=== PATIENT | female | born 1945 | race Caucasian/White ===

== ENCOUNTER 2021-07-29 07:25 | Inpatient (IN) | payer MEDICARE, BC ==
[2021-07-29 07:46] LABS: #Basophils 0.1 10x3/uL (0.0-0.2); #Eosinphils 0.2 10x3/uL (0.0-0.5); #Neutrophils 11.1 10x3/uL (1.5-8.4); %Basophils 0.8 % (0.0-2.0); %Eosinophils 1.2 % (0.0-6.0); %Lymphocytes 18.6 % (18.0-47.0); %Monocytes 6.2 % (0.0-10.0); %Neutrophils 72.4 % (40.0-75.0); Hemoglobin 12.3 g/dL (12.0-15.5); Mean Corpuscular HGB CONC 31.5 g/dL (32.0-36.0); Mean Corpuscular Hemoglobin 31.1 pg (27.0-33.0); Mean Corpuscular Volume 98.7 fl (81.6-98.3); Mean Platelet Volume 9.8 fl (7.4-10.4); Platelet Count 347 10x3/uL (150-450); RBC Distribution Width 13.9 % (11.5-14.5); Red Blood Cell (RBC) Count 3.96 10x6/uL (3.90-5.03); White Blood Cell (WBC) Count 15.3 10x3/uL (3.5-10.5)
[2021-07-29 07:48] LABS: Actual Bicarbonate (HCO3v) 21 mEq/L (22-28); Base Excess -5.2 mEq/L (-2.0 to +3.0); Calcium, Ionized (venous) 1.09 mmol/L (1.16-1.32); Chloride (VBG) 96 mmol/L (98-106); Hemoglobin (Hb) 13.2 g/dL (11.7-16.1); Potassium (VBG) 4.35 mmol/L (3.70-5.30); Puncture Site Other Site; RapidComm Collect By CBN; Sodium 131.3 mmol/L (133-146)
[2021-07-29 08:00] LABS: ALT (SGPT) 40 U/L (8-55); AST (SGOT) 45 U/L (5-34); Albumin 3.9 g/dL (3.4-4.8); Alkaline Phosphatase 102 U/L (40-110); Anion Gap 17 mmol/L (10-20); BUN (Urea Nitrogen) 18 mg/dL (9.8-20.1); Bilirubin, Total 0.7 mg/dL (0.2-1.2); Calc. Creatinine Clearance 0 mL/min (70-130); Calcium 8.3 mg/dL (7.8-10.44); Carbon Dioxide 22 mmol/L (23-31); Chloride 99 mmol/L (98-107); Globulin 2.9 g/dL (2.4-3.5); Glucose 369 mg/dL (83-110); Potassium 4.7 mmol/L (3.5-5.1); Protein, Total 6.8 g/dL (5.8-8.1); Sodium 133 mmol/L (136-145)
[2021-07-29 08:53] LABS: CKMB 3.4 ng/mL (0-6.6)
[2021-07-29 10:53] LABS: Lactic Acid 2.3 mmol/L (0.5-2.2)
[2021-07-29] MEDS ORDERED: Bisacodyl 5 MG TAB PO PRN (11:02)
[2021-07-29] MEDS ORDERED: Bisacodyl 10 MG SUPP PR PRN (11:02)
[2021-07-29] MEDS ORDERED: Ondansetron ODT 4 MG TAB PO PRN (11:02)
[2021-07-29] MEDS ORDERED: Ondansetron PF 4 MG/2 ML Vial IVP PRN (11:02)
[2021-07-29] MEDS ORDERED: Senokot S 8.6-50 MG TAB PO PRN (11:02)
[2021-07-29] MEDS ORDERED: Dextrose 5% in Water 1,000 ML IV PRN (11:13)
[2021-07-29] MEDS ORDERED: Dextrose 50% Abboject 50 ML SYRINGE SLOW IVP PRN (11:13)
[2021-07-29 12:25] LABS: Troponin I 2.167 ng/mL (< 0.028)
[2021-07-29 13:22] LABS: SARS-CoV-2 NAA Rapid Test Not Detected (NotDetected)
[2021-07-29] MEDS: methylPREDNISolone Sod Succ/PF 125 MG/2 ML VIAL IVP SCH ×2 (13:40→18:16)
[2021-07-29] MEDS: Albuterol Sulfate 2.5 mg/3 ml Neb NEB SCH ×3 (15:08→22:55)
[2021-07-29] MEDS: Acetaminophen 325 MG TAB PO PRN (16:23)
[2021-07-29] MEDS: HumaLOG 300 UNITS/3 ML VIAL SC PRN ×2 (16:29→21:38)
[2021-07-29 17:56] LABS: Troponin I 2.371 ng/mL (< 0.028)
[2021-07-29] MEDS ORDERED: Aspirin 81 mg Enteric Coated Tablet PO SCH (20:00)
[2021-07-29] MEDS: Atorvastatin Calcium 40 MG TAB PO SCH (20:56)
[2021-07-29] MEDS: Famotidine 20 MG TAB PO SCH (20:57)
[2021-07-29] MEDS: Enoxaparin Sodium 80 MG/0.8 ML SYRINGE SC SCH (20:57)
[2021-07-29] MEDS ORDERED: Furosemide 40 MG TAB PO PRN (22:47)
[2021-07-29] MEDS ORDERED: Carvedilol 3.125 MG TAB PO SCH (23:15)
[2021-07-29] MEDS: Azithromycin 500 MG in Sodium Chloride 0.9% 250 ML 250 ML IVPB SCH (23:25)
[2021-07-30] MEDS: methylPREDNISolone Sod Succ/PF 125 MG/2 ML VIAL IVP SCH ×3 (01:33→09:47)
[2021-07-30] MEDS: cefTRIAXone\\ROCEPHIN 2 GM in Sodium Chloride 0.9% 100 ML IVPB SCH ×2 (01:34→23:45)
[2021-07-30] MEDS: Albuterol Sulfate 2.5 mg/3 ml Neb NEB SCH ×6 (02:58→22:47)
[2021-07-30] MEDS ORDERED: Lorazepam 0.5 MG TAB PO SCH (03:45)
[2021-07-30 04:04] LABS: #Monocytes 0.5 10x3/uL (0.0-1.1); #Neutrophils 12.1 10x3/uL (1.5-8.4); %Basophils 0.1 % (0.0-2.0); %Monocytes 3.6 % (0.0-10.0); %Neutrophils 88.9 % (40.0-75.0); Hemoglobin 12.4 g/dL (12.0-15.5); Mean Corpuscular HGB CONC 31.6 g/dL (32.0-36.0); Mean Corpuscular Hemoglobin 31.2 pg (27.0-33.0); Mean Corpuscular Volume 98.7 fl (81.6-98.3); Mean Platelet Volume 10.3 fl (7.4-10.4); Platelet Count 263 10x3/uL (150-450); RBC Distribution Width 13.9 % (11.5-14.5); Red Blood Cell (RBC) Count 3.97 10x6/uL (3.90-5.03); White Blood Cell (WBC) Count 13.6 10x3/uL (3.5-10.5)
[2021-07-30 04:28] LABS: ALT (SGPT) 99 U/L (8-55); AST (SGOT) 106 U/L (5-34); Albumin 3.9 g/dL (3.4-4.8); Alkaline Phosphatase 115 U/L (40-110); Anion Gap 16 mmol/L (10-20); BUN (Urea Nitrogen) 21 mg/dL (9.8-20.1); Bilirubin, Total 0.6 mg/dL (0.2-1.2); CRP (Inflammatory) 4.61 mg/dL (= or < 0.5); Calc. Creatinine Clearance 76 mL/min (70-130); Calcium 8.5 mg/dL (7.8-10.44); Carbon Dioxide 21 mmol/L (23-31); Cardiac Risk 2.4 (Less than 4.5); Chloride 98 mmol/L (98-107); Cholesterol 156 mg/dl (< 200 Desired); Glucose 220 mg/dL (83-110); HDL Cholesterol 64 mg/dL (>60 Neg Risk); LDL Cholesterol, Calculated 84 mg/dL; Magnesium 2.6 mg/dL (1.6-2.6); Phosphorus 4.1 mg/dL (2.3-4.7); Potassium 5.4 mmol/L (3.5-5.1); Protein, Total 6.9 g/dL (5.8-8.1); Sodium 130 mmol/L (136-145); Triglycerides 39 mg/dL (Less than 150)
[2021-07-30 04:43] LABS: Troponin I 1.328 ng/mL (< 0.028)
[2021-07-30] MEDS: HumaLOG 300 UNITS/3 ML VIAL SC PRN (05:23)
[2021-07-30] MEDS ORDERED: Furosemide 40 MG/4 ML VIAL SLOW IVP SCH ×2 (08:30→15:15)
[2021-07-30] MEDS ORDERED: Enoxaparin Sodium 40 MG/0.4 ML SYRINGE SC SCH (09:00)
[2021-07-30] MEDS: Digoxin 0.125 MG TAB PO SCH (09:31)
[2021-07-30] MEDS: Enoxaparin Sodium 80 MG/0.8 ML SYRINGE SC SCH ×2 (09:31→22:11)
[2021-07-30] MEDS: Carvedilol 3.125 MG TAB PO SCH ×2 (09:32→16:14)
[2021-07-30] MEDS: Aspirin 81 mg Enteric Coated Tablet PO SCH (09:32)
[2021-07-30] MEDS: Famotidine 20 MG TAB PO SCH ×2 (09:32→22:10)
[2021-07-30 09:43] LABS: Anion Gap 14 mmol/L (10-20); BUN (Urea Nitrogen) 21 mg/dL (9.8-20.1); Calc. Creatinine Clearance 79 mL/min (70-130); Calcium 9.1 mg/dL (7.8-10.44); Carbon Dioxide 24 mmol/L (23-31); Chloride 101 mmol/L (98-107); Glucose 79 mg/dL (83-110); Potassium 4.8 mmol/L (3.5-5.1); Sodium 134 mmol/L (136-145)
[2021-07-30 12:41] LABS: Hemoglobin A1c 5.9 % (4.0-6.0)
[2021-07-30] MEDS: Acetaminophen 325 MG TAB PO PRN (19:14)
[2021-07-30] MEDS ORDERED: Loratadine 10 MG TAB PO SCH (21:00)
[2021-07-30] MEDS: Benzonatate 100 MG CAP PO PRN (22:10)
[2021-07-30] MEDS: Atorvastatin Calcium 40 MG TAB PO SCH (22:10)
[2021-07-30] MEDS: CETIRIZINE PO SCH (22:12)
[2021-07-30] MEDS: Azithromycin 500 MG in Sodium Chloride 0.9% 250 ML 250 ML IVPB SCH (23:38)
[2021-07-31] MEDS ORDERED: Albuterol Sulfate 2.5 mg/3 ml Neb NEB SCH (01:30)
[2021-07-31] MEDS ORDERED: Lorazepam 2 MG/ML VIAL SLOW IVP SCH (01:30)
[2021-07-31] MEDS: Albuterol Sulfate 2.5 mg/3 ml Neb NEB SCH ×6 (04:34→22:50)
[2021-07-31 05:52] LABS: ALT (SGPT) 137 U/L (8-55); AST (SGOT) 130 U/L (5-34); Albumin 3.8 g/dL (3.4-4.8); Alkaline Phosphatase 108 U/L (40-110); Anion Gap 15 mmol/L (10-20); BUN (Urea Nitrogen) 33 mg/dL (9.8-20.1); Bilirubin, Total 0.5 mg/dL (0.2-1.2); Calc. Creatinine Clearance 64 mL/min (70-130); Calcium 8.8 mg/dL (7.8-10.44); Carbon Dioxide 26 mmol/L (23-31); Chloride 97 mmol/L (98-107); Globulin 3.1 g/dL (2.4-3.5); Glucose 147 mg/dL (83-110); Magnesium 2.6 mg/dL (1.6-2.6); Phosphorus 4.7 mg/dL (2.3-4.7); Potassium 4.4 mmol/L (3.5-5.1); Protein, Total 6.9 g/dL (5.8-8.1); Sodium 134 mmol/L (136-145)
[2021-07-31 05:53] LABS: #Monocytes 1.5 10x3/uL (0.0-1.1); #Neutrophils 14.5 10x3/uL (1.5-8.4); %Basophils 0.2 % (0.0-2.0); %Lymphocytes 4.9 % (18.0-47.0); %Monocytes 8.7 % (0.0-10.0); %Neutrophils 85.6 % (40.0-75.0); Hemoglobin 12.4 g/dL (12.0-15.5); Mean Corpuscular HGB CONC 32.2 g/dL (32.0-36.0); Mean Corpuscular Hemoglobin 31.5 pg (27.0-33.0); Mean Corpuscular Volume 97.7 fl (81.6-98.3); Mean Platelet Volume 10.7 fl (7.4-10.4); Platelet Count 248 10x3/uL (150-450); RBC Distribution Width 13.9 % (11.5-14.5); Red Blood Cell (RBC) Count 3.94 10x6/uL (3.90-5.03); White Blood Cell (WBC) Count 16.9 10x3/uL (3.5-10.5)
[2021-07-31] MEDS: Furosemide 40 MG/4 ML VIAL SLOW IVP SCH ×2 (06:08→13:30)
[2021-07-31] MEDS: methylPREDNISolone Sod Succ/PF 125 MG/2 ML VIAL IVP SCH ×3 (09:08→23:37)
[2021-07-31] MEDS: Enoxaparin Sodium 80 MG/0.8 ML SYRINGE SC SCH ×2 (09:09→21:59)
[2021-07-31] MEDS: Carvedilol 6.25 MG TAB PO SCH ×2 (09:09→16:45)
[2021-07-31] MEDS: Aspirin 81 mg Enteric Coated Tablet PO SCH (09:10)
[2021-07-31] MEDS: Digoxin 0.125 MG TAB PO SCH (09:10)
[2021-07-31] MEDS: Famotidine 20 MG TAB PO SCH ×2 (09:10→22:01)
[2021-07-31] MEDS ORDERED: methylPREDNISolone Sod Succ/PF 125 MG/2 ML VIAL IVP SCH (13:00)
[2021-07-31] MEDS ORDERED: Albuterol Sulfate 2.5 mg/3 ml Neb ONE (13:26)
[2021-07-31] MEDS ORDERED: Magnesium 2 GM/50 ML 2 GM in Premix Bag 1 BAG IVPB SCH (13:30)
[2021-07-31 15:26] LABS: Lactic Acid 0.9 mmol/L (0.5-2.2); PTT 30.7 sec (22.0-33.0); Prothrombin Time 11.1 sec (9.5-12.1)
[2021-07-31 15:34] LABS: #Monocytes 0.3 10x3/uL (0.0-1.1); #Neutrophils 12.7 10x3/uL (1.5-8.4); %Basophils 0.1 % (0.0-2.0); %Lymphocytes 4.3 % (18.0-47.0); %Monocytes 2.4 % (0.0-10.0); %Neutrophils 92.8 % (40.0-75.0); Hemoglobin 12.6 g/dL (12.0-15.5); Mean Corpuscular HGB CONC 32.5 g/dL (32.0-36.0); Mean Corpuscular Hemoglobin 31.3 pg (27.0-33.0); Mean Corpuscular Volume 96.5 fl (81.6-98.3); Mean Platelet Volume 10.4 fl (7.4-10.4); Platelet Count 260 10x3/uL (150-450); RBC Distribution Width 13.8 % (11.5-14.5); Red Blood Cell (RBC) Count 4.02 10x6/uL (3.90-5.03); White Blood Cell (WBC) Count 13.7 10x3/uL (3.5-10.5)
[2021-07-31 15:36] LABS: Actual Bicarbonate (HCO3v) 37 mEq/L (22-28); Base Excess 11.7 mEq/L (-2.0 to +3.0); Calcium, Ionized (venous) 0.99 mmol/L (1.16-1.32); Chloride (VBG) 92 mmol/L (98-106); Hemoglobin (Hb) 13.5 g/dL (11.7-16.1); Potassium (VBG) 5.66 mmol/L (3.70-5.30); Puncture Site Other Site; Sodium 133.4 mmol/L (133-146); pH (venous) 7.49 (7.32-7.43)
[2021-07-31 15:55] LABS: ALT (SGPT) 145 U/L (8-55); AST (SGOT) 129 U/L (5-34); Albumin 3.9 g/dL (3.4-4.8); Alkaline Phosphatase 110 U/L (40-110); Anion Gap 16 mmol/L (10-20); BUN (Urea Nitrogen) 28 mg/dL (9.8-20.1); Bilirubin, Total 0.5 mg/dL (0.2-1.2); Calc. Creatinine Clearance 65 mL/min (70-130); Calcium 8.8 mg/dL (7.8-10.44); Carbon Dioxide 31 mmol/L (23-31); Chloride 93 mmol/L (98-107); Globulin 3.1 g/dL (2.4-3.5); Glucose 164 mg/dL (83-110); Magnesium 2.6 mg/dL (1.6-2.6); Phosphorus 3.5 mg/dL (2.3-4.7); Potassium 4.5 mmol/L (3.5-5.1); Sodium 135 mmol/L (136-145)
[2021-07-31] MEDS: CETIRIZINE PO SCH (21:59)
[2021-07-31] MEDS: Acetaminophen 325 MG TAB PO PRN (22:00)
[2021-07-31] MEDS: Benzonatate 100 MG CAP PO PRN (22:00)
[2021-07-31] MEDS: Atorvastatin Calcium 40 MG TAB PO SCH (22:00)
[2021-07-31] MEDS: Azithromycin 500 MG in Sodium Chloride 0.9% 250 ML 250 ML IVPB SCH (23:37)
[2021-07-31] MEDS: cefTRIAXone\\ROCEPHIN 2 GM in Sodium Chloride 0.9% 100 ML IVPB SCH (23:38)
[2021-07-31] MEDS ORDERED: HumaLOG 300 UNITS/3 ML VIAL SC SCH (23:45)
[2021-08-01] MEDS: Albuterol Sulfate 2.5 mg/3 ml Neb NEB SCH ×6 (03:20→22:50)
[2021-08-01] MEDS: Furosemide 40 MG/4 ML VIAL SLOW IVP SCH ×2 (06:09→15:24)
[2021-08-01] MEDS: methylPREDNISolone Sod Succ/PF 125 MG/2 ML VIAL IVP SCH ×3 (06:42→19:06)
[2021-08-01 07:18] LABS: #Monocytes 0.3 10x3/uL (0.0-1.1); #Neutrophils 7.7 10x3/uL (1.5-8.4); %Basophils 0.1 % (0.0-2.0); %Lymphocytes 9.8 % (18.0-47.0); %Monocytes 3.8 % (0.0-10.0); %Neutrophils 85.9 % (40.0-75.0); Mean Corpuscular Hemoglobin 31.3 pg (27.0-33.0); Mean Corpuscular Volume 97.7 fl (81.6-98.3); Mean Platelet Volume 10.5 fl (7.4-10.4); Platelet Count 240 10x3/uL (150-450); RBC Distribution Width 13.4 % (11.5-14.5); Red Blood Cell (RBC) Count 3.84 10x6/uL (3.90-5.03)
[2021-08-01 07:41] LABS: ALT (SGPT) 129 U/L (8-55); AST (SGOT) 91 U/L (5-34); Albumin 3.8 g/dL (3.4-4.8); Alkaline Phosphatase 99 U/L (40-110); Anion Gap 15 mmol/L (10-20); BUN (Urea Nitrogen) 29 mg/dL (9.8-20.1); Bilirubin, Total 0.5 mg/dL (0.2-1.2); Calc. Creatinine Clearance 71 mL/min (70-130); Carbon Dioxide 35 mmol/L (23-31); Chloride 92 mmol/L (98-107); Globulin 2.9 g/dL (2.4-3.5); Glucose 152 mg/dL (83-110); Magnesium 2.9 mg/dL (1.6-2.6); Phosphorus 3.3 mg/dL (2.3-4.7); Potassium 4.5 mmol/L (3.5-5.1); Protein, Total 6.7 g/dL (5.8-8.1); Sodium 137 mmol/L (136-145)
[2021-08-01] MEDS: Carvedilol 6.25 MG TAB PO SCH ×2 (11:37→19:25)
[2021-08-01] MEDS: Aspirin 81 mg Enteric Coated Tablet PO SCH (11:37)
[2021-08-01] MEDS: Famotidine 20 MG TAB PO SCH ×2 (11:37→22:27)
[2021-08-01] MEDS: Enoxaparin Sodium 80 MG/0.8 ML SYRINGE SC SCH (11:37)
[2021-08-01] MEDS: Digoxin 0.125 MG TAB PO SCH (11:37)
[2021-08-01] MEDS: Mometasone/Formoterol 200/5 60 PUFF INH SCH (19:30)
[2021-08-01] MEDS: Atorvastatin Calcium 40 MG TAB PO SCH (22:27)
[2021-08-01] MEDS: CETIRIZINE PO SCH (22:28)
[2021-08-01] MEDS: Azithromycin 500 MG in Sodium Chloride 0.9% 250 ML 250 ML IVPB SCH (22:28)
[2021-08-01] MEDS: Benzonatate 100 MG CAP PO PRN (22:29)
[2021-08-02] MEDS: Acetaminophen 325 MG TAB PO PRN (02:00)
[2021-08-02] MEDS: Albuterol Sulfate 2.5 mg/3 ml Neb NEB SCH ×6 (02:35→23:10)
[2021-08-02] MEDS: cefTRIAXone\\ROCEPHIN 2 GM in Sodium Chloride 0.9% 100 ML IVPB SCH (03:02)
[2021-08-02] MEDS: methylPREDNISolone Sod Succ/PF 125 MG/2 ML VIAL IVP SCH ×2 (03:02→06:34)
[2021-08-02] MEDS ORDERED: cefTRIAXone\\ROCEPHIN 1 GM VIAL IM SCH (04:00)
[2021-08-02] MEDS ORDERED: predniSONE 20 MG TAB PO SCH (04:00)
[2021-08-02] MEDS: Benzonatate 100 MG CAP PO PRN ×2 (04:22→21:00)
[2021-08-02 04:44] LABS: ALT (SGPT) 108 U/L (8-55); AST (SGOT) 68 U/L (5-34); Albumin 3.6 g/dL (3.4-4.8); Alkaline Phosphatase 95 U/L (40-110); Anion Gap 15 mmol/L (10-20); BUN (Urea Nitrogen) 36 mg/dL (9.8-20.1); Bilirubin, Total 0.5 mg/dL (0.2-1.2); Calc. Creatinine Clearance 61 mL/min (70-130); Calcium 8.6 mg/dL (7.8-10.44); Carbon Dioxide 33 mmol/L (23-31); Chloride 90 mmol/L (98-107); Glucose 168 mg/dL (83-110); Magnesium 2.7 mg/dL (1.6-2.6); Phosphorus 2.8 mg/dL (2.3-4.7); Potassium 4.3 mmol/L (3.5-5.1); Protein, Total 6.6 g/dL (5.8-8.1); Sodium 134 mmol/L (136-145)
[2021-08-02] MEDS ORDERED: Furosemide 20 MG TAB PO SCH (06:00)
[2021-08-02] MEDS: Furosemide 40 MG/4 ML VIAL SLOW IVP SCH (06:34)
[2021-08-02] MEDS: Mometasone/Formoterol 200/5 60 PUFF INH SCH ×2 (07:50→19:55)
[2021-08-02] MEDS: Famotidine 20 MG TAB PO SCH ×2 (10:04→21:00)
[2021-08-02] MEDS: Carvedilol 6.25 MG TAB PO SCH ×2 (10:04→18:20)
[2021-08-02] MEDS: Aspirin 81 mg Enteric Coated Tablet PO SCH (10:04)
[2021-08-02] MEDS: Digoxin 0.125 MG TAB PO SCH (10:04)
[2021-08-02] MEDS: Enoxaparin Sodium 40 MG/0.4 ML SYRINGE SC SCH (10:04)
[2021-08-02] MEDS: Torsemide 20 MG TAB PO SCH (15:02)
[2021-08-02] MEDS: Atorvastatin Calcium 40 MG TAB PO SCH (21:00)
[2021-08-02] MEDS: Cefdinir 300 MG CAP PO SCH (21:00)
[2021-08-02] MEDS: CETIRIZINE PO SCH (21:01)
[2021-08-03] MEDS: Albuterol Sulfate 2.5 mg/3 ml Neb NEB SCH ×5 (04:49→18:55)
[2021-08-03] MEDS: Mometasone/Formoterol 200/5 60 PUFF INH SCH (07:45)
[2021-08-03] MEDS: Carvedilol 6.25 MG TAB PO SCH ×2 (08:13→16:53)
[2021-08-03] MEDS: Torsemide 20 MG TAB PO SCH ×2 (08:13→14:39)
[2021-08-03] MEDS: predniSONE 20 MG TAB PO SCH (08:13)
[2021-08-03] MEDS: Aspirin 81 mg Enteric Coated Tablet PO SCH (08:13)
[2021-08-03] MEDS: Digoxin 0.125 MG TAB PO SCH (08:13)
[2021-08-03] MEDS: Cefdinir 300 MG CAP PO SCH (08:13)
[2021-08-03] MEDS: Famotidine 20 MG TAB PO SCH ×2 (08:13→20:11)
[2021-08-03] MEDS: Enoxaparin Sodium 40 MG/0.4 ML SYRINGE SC SCH (08:14)
[2021-08-03] MEDS ORDERED: Azithromycin 250 MG TAB PO SCH (09:00)
[2021-08-03] MEDS: Benzonatate 100 MG CAP PO PRN ×2 (11:27→20:16)
[2021-08-03] MEDS: Acetaminophen 325 MG TAB PO PRN (11:27)
[2021-08-03] MEDS ORDERED: Albuterol Sulfate 2.5 mg/3 ml Neb NEB PRN (17:00)
[2021-08-03] MEDS: Atorvastatin Calcium 40 MG TAB PO SCH (20:11)
[2021-08-03] MEDS: CETIRIZINE PO SCH (20:11)
[2021-08-03] MEDS ORDERED: Montelukast Sodium 10 mg Tablet PO SCH (21:00)
[2021-08-04] MEDS: Albuterol Sulfate 2.5 mg/3 ml Neb NEB SCH ×4 (00:05→10:40)
[2021-08-04] MEDS: Mometasone/Formoterol 200/5 60 PUFF INH SCH ×2 (00:21→10:40)
[2021-08-04 04:46] VITALS: BMI 26.4
[2021-08-04] MEDS: Torsemide 20 MG TAB PO SCH ×2 (08:26→15:46)
[2021-08-04] MEDS: predniSONE 20 MG TAB PO SCH (08:26)
[2021-08-04] MEDS: Carvedilol 6.25 MG TAB PO SCH (08:26)
[2021-08-04] MEDS: Aspirin 81 mg Enteric Coated Tablet PO SCH (08:26)
[2021-08-04] MEDS: Famotidine 20 MG TAB PO SCH (08:27)
[2021-08-04] MEDS: Enoxaparin Sodium 40 MG/0.4 ML SYRINGE SC SCH (08:27)
[2021-08-04] MEDS: Digoxin 0.125 MG TAB PO SCH (08:27)
[2021-08-04 08:36] LABS: #Eosinphils 0.2 10x3/uL (0.0-0.5); #Monocytes 0.9 10x3/uL (0.0-1.1); %Basophils 0.1 % (0.0-2.0); %Eosinophils 2.2 % (0.0-6.0); %Lymphocytes 32.3 % (18.0-47.0); %Monocytes 9.6 % (0.0-10.0); Hemoglobin 10.7 g/dL (12.0-15.5); Mean Corpuscular HGB CONC 31.7 g/dL (32.0-36.0); Mean Corpuscular Hemoglobin 31.1 pg (27.0-33.0); Mean Corpuscular Volume 98.3 fl (81.6-98.3); Mean Platelet Volume 10.2 fl (7.4-10.4); Platelet Count 243 10x3/uL (150-450); RBC Distribution Width 13.1 % (11.5-14.5); Red Blood Cell (RBC) Count 3.44 10x6/uL (3.90-5.03); White Blood Cell (WBC) Count 9.2 10x3/uL (3.5-10.5)
[2021-08-04 08:54] LABS: BUN (Urea Nitrogen) 28 mg/dL (9.8-20.1); Calc. Creatinine Clearance 76 mL/min (70-130); Calcium 8.5 mg/dL (7.8-10.44); Glucose 104 mg/dL (83-110)
[2021-08-04 09:07] LABS: Anion Gap 15 mmol/L (10-20); Carbon Dioxide 38 mmol/L (23-31); Chloride 90 mmol/L (98-107); Potassium 3.8 mmol/L (3.5-5.1); Sodium 139 mmol/L (136-145)
[2021-08-04 12:42] VITALS: TEMP 97.5
[2021-08-04 16:02] VITALS: BP 136/63
== END 2021-08-04 16:50 | disposition home or self-care (01) | DRG 871 ==
LOC: SUATTDRO 07:25 → CSHERS 07:25 → CSHICU 13:04 → CSHTELE 07-30 21:07
PROVIDERS: ADMIT Family Medicine; ATTEND Family Medicine
DX: A41.9 Sepsis, unspecified organism (principal); J96.01 Acute respiratory failure with hypoxia; I50.23 Acute on chronic systolic (congestive) heart failure; I21.A1 Myocardial infarction type 2; J45.51 Severe persistent asthma with (acute) exacerbation; I16.1 Hypertensive emergency; I51.81 Takotsubo syndrome; Z20.822 Contact with and (suspected) exposure to COVID-19; I11.0 Hypertensive heart disease with heart failure; I48.91 Unspecified atrial fibrillation; K76.9 Liver disease, unspecified; R73.9 Hyperglycemia, unspecified; Z88.5 Allergy status to narcotic agent; Z88.0 Allergy status to penicillin; Z88.8 Allergy status to other drugs, medicaments and biological substances; Z79.51 Long term (current) use of inhaled steroids; Z90.710 Acquired absence of both cervix and uterus; Z90.49 Acquired absence of other specified parts of digestive tract; Z90.89 Acquired absence of other organs; Z95.0 Presence of cardiac pacemaker
CPT/HCPCS: 0240U; 36415; 36416; 71045; 71275; 76705; 80048; 80053; 80061; 82553; 82805; 83036; 83605; 83735; 83880; 84100; 84145; 84443; 84484; 85025; 85610; 85730; 86140; 86850; 86900; 86901; 87040; 87070; 87081; 87205; 93005; 93010; 93306; 94640; 94660; 94664; 94760; J0456; J0696; J1650; J1815; J1940; J2060; J2405; J2930; J3475; J3490; J7050; J7512; J7611

== ENCOUNTER 2025-04-02 13:37 | Inpatient (IN) | payer MEDICARE, BC ==
[2025-04-02 14:34] LABS: #Basophils 0.06 10x3/uL (0.0-0.2); #Eosinophils 0.53 10x3/uL (0.0-0.5); #Monocytes 0.67 10x3/uL (0.0-1.1); #Neutrophils 4.51 10x3/uL (1.5-8.4); %Basophils 0.8 % (0.0-2.0); %Eosinophils 6.8 % (0.0-6.0); %Lymphocytes 25.8 % (18.0-47.0); %Monocytes 8.6 % (0.0-10.0); %Neutrophils 57.5 % (40.0-75.0); Hematocrit 36.4 % (34.9-44.5); Hemoglobin 11.7 g/dL (12.0-15.5); Mean Corpuscular Hemoglobin 30.9 pg (27.0-33.0); Mean Corpuscular Volume 96.0 fL (81.6-98.3); Platelet Count 314 10x3/uL (150-450); Red Blood Cell (RBC) Count 3.79 10x6/uL (3.90-5.03); White Blood Cell (WBC) Count 7.83 10x3/uL (3.5-10.5)
[2025-04-02 14:50] LABS: ALT (SGPT) 20 U/L (Less than 34); AST (SGOT) 29 U/L (11-34); Albumin 4.3 g/dL (3.1-4.5); Alkaline Phosphatase 86 U/L (40-110); Anion Gap 12 mmol/L (10-20); BUN (Urea Nitrogen) 17 mg/dL (9.8-20.1); Bilirubin, Total 0.3 mg/dL (0.3-1.2); Calc. Creatinine Clearance 0 mL/min (70-130); Calcium 9.7 mg/dL (7.8-10.44); Carbon Dioxide 28 mmol/L (23-31); Chloride 103 mmol/L (98-107); Globulin 3.6 g/dL (2.4-3.5); Glucose 115 mg/dL (83-110); Potassium 4.2 mmol/L (3.5-5.1); Sodium 139 mmol/L (136-145)
[2025-04-02] MEDS ORDERED: LevoFLOXacin 750 mg/D5W 150 ml Premix Bag ONE (14:51)
[2025-04-02 16:40] LABS: Glucose, Urine (Dipstick) Normal (Negative); Leukocyte Negative (Negative); Protein, Urine (Dipstick) Negative (Neg-Trace); Specific Gravity, Urine 1.015 (1.005-1.030)
[2025-04-02 16:58] LABS: Bacteria/HPF None Seen HPF (None Seen); CAUTI Indications for Culture Fever or rigors; RBC/HPF None Seen HPF (0-3); WBC/HPF None Seen HPF (0-3)
[2025-04-02] MEDS ORDERED: Senokot S 8.6-50 MG TAB PO PRN (16:58)
[2025-04-02] MEDS ORDERED: Melatonin 3 MG TAB PO PRN (16:58)
[2025-04-02 16:59] LABS: Urine Culture Reflex No No
[2025-04-02] MEDS ORDERED: diphenhydrAMINE 25 MG CAP PO PRN (17:02)
[2025-04-02] MEDS: VANCOMYCIN 1.75 GM/350 ML BAG 1.75 GM in Premix 1 BAG IVPB SCH (17:21)
[2025-04-02 17:22] VITALS: BMI 25.3
[2025-04-02] MEDS: Famotidine 20 MG TAB PO SCH (20:30)
[2025-04-03] MEDS: Vancomycin HCl 750 MG in Sodium Chloride 0.9% 250 ML 250 ML IVPB SCH (00:04)
[2025-04-03 04:10] LABS: Anion Gap 12 mmol/L (10-20); BUN (Urea Nitrogen) 15 mg/dL (9.8-20.1); Calc. Creatinine Clearance 78 mL/min (70-130); Calcium 8.6 mg/dL (7.8-10.44); Carbon Dioxide 24 mmol/L (23-31); Chloride 107 mmol/L (98-107); Glucose 108 mg/dL (83-110); Potassium 3.9 mmol/L (3.5-5.1); Sodium 139 mmol/L (136-145)
[2025-04-03 04:11] LABS: Vancomycin, Random 29.1 ug/mL (See Comment)
[2025-04-03] MEDS: PNEUMOC 20-VAL CONJ-DIP CRM/PF 0.5 ML SYRINGE IM ONE (08:56)
[2025-04-03] MEDS: Acetaminophen 325 MG TAB PO PRN (08:57)
[2025-04-03] MEDS: Enoxaparin 40 MG (0.4 mL) SYRINGE SC SCH (08:59)
[2025-04-03] MEDS: Torsemide 20 MG TAB PO SCH (14:48)
[2025-04-03] MEDS: Digoxin 0.125 MG TAB PO SCH (14:48)
[2025-04-03] MEDS: Aspirin 81 mg Enteric Coated Tablet PO SCH (14:49)
[2025-04-03] MEDS: Carvedilol 6.25 MG TAB PO SCH (14:49)
[2025-04-03] MEDS: LevoFLOXacin 750 mg/D5W 750 MG in Premix 1 BAG IVPB SCH (15:35)
[2025-04-03] MEDS: Vancomycin 1 GM in Sodium Chloride 0.9% 250 ML 250 ML IVPB SCH (19:37)
[2025-04-04] MEDS: diphenhydrAMINE 50 MG/ML VIAL IVP PRN (11:14)
[2025-04-05 12:05] VITALS: BP 141/72; TEMP 98.3
== END 2025-04-05 14:37 | disposition home or self-care (01) | DRG 603 ==
LOC: CSHERS 13:37 → CSHTELE 16:04 → OBSVTOIN 04-03 12:24
PROVIDERS: ADMIT Internal Medicine; ATTEND Internal Medicine
DX: L03.113 Cellulitis of right upper limb (principal); L03.115 Cellulitis of right lower limb; I48.19 Other persistent atrial fibrillation; I48.91 Unspecified atrial fibrillation; F10.90 Alcohol use, unspecified, uncomplicated; E78.5 Hyperlipidemia, unspecified; I50.9 Heart failure, unspecified; Z90.710 Acquired absence of both cervix and uterus; Z98.890 Other specified postprocedural states; Z95.0 Presence of cardiac pacemaker; Z95.818 Presence of other cardiac implants and grafts
CPT/HCPCS: 36415; 71045; 80048; 80053; 80202; 81001; 83605; 84145; 85025; 86140; 87040; 87081; 87086; 93005; 94640; 97139; J1200; J1650; J1956; J3373; J3375; J7050; J7620

== ENCOUNTER 2025-04-09 13:55 | Outpatient (CLI) | payer MEDICARE, BC | END 2025-04-09 13:56 | disposition home or self-care (01) | LOC: CSHWCC 13:55 | PROVIDERS: ATTEND Nurse Practitioner Family | DX: I87.331 Chronic venous hypertension (idiopathic) with ulcer and inflammation of right lower extremity (principal); L97.211 Non-pressure chronic ulcer of right calf limited to breakdown of skin; I50.22 Chronic systolic (congestive) heart failure | CPT/HCPCS: 11042; G0463; 99213 ==

== ENCOUNTER 2025-04-16 12:46 | Outpatient (CLI) | payer MEDICARE, BC | END 2025-04-16 12:47 | disposition home or self-care (01) | LOC: CSHWCC 12:46 | PROVIDERS: ATTEND Nurse Practitioner Family | DX: I87.331 Chronic venous hypertension (idiopathic) with ulcer and inflammation of right lower extremity (principal); L97.211 Non-pressure chronic ulcer of right calf limited to breakdown of skin; I50.22 Chronic systolic (congestive) heart failure | CPT/HCPCS: 11042 ==

== ENCOUNTER 2025-04-30 13:39 | Outpatient (CLI) | payer MEDICARE, BC | END 2025-04-30 13:40 | disposition home or self-care (01) | LOC: CSHWCC 13:39 | PROVIDERS: ATTEND Nurse Practitioner Family | DX: I87.331 Chronic venous hypertension (idiopathic) with ulcer and inflammation of right lower extremity (principal); L97.211 Non-pressure chronic ulcer of right calf limited to breakdown of skin; I50.22 Chronic systolic (congestive) heart failure | CPT/HCPCS: 11042 ==

== ENCOUNTER 2025-05-11 13:02 | Outpatient (CLI) | payer MEDICARE, BC | END 2025-05-11 13:03 | disposition home or self-care (01) | LOC: CSHWCC 13:02 | PROVIDERS: ATTEND Nurse Practitioner Family | DX: I87.331 Chronic venous hypertension (idiopathic) with ulcer and inflammation of right lower extremity (principal); L97.211 Non-pressure chronic ulcer of right calf limited to breakdown of skin; I50.22 Chronic systolic (congestive) heart failure | CPT/HCPCS: 29581 ==

== ENCOUNTER 2025-05-14 13:39 | Outpatient (CLI) | payer MEDICARE, BC | END 2025-05-14 13:40 | disposition home or self-care (01) | LOC: CSHWCC 13:39 | PROVIDERS: ATTEND Nurse Practitioner Family | DX: I87.331 Chronic venous hypertension (idiopathic) with ulcer and inflammation of right lower extremity (principal); L97.211 Non-pressure chronic ulcer of right calf limited to breakdown of skin; I50.22 Chronic systolic (congestive) heart failure | CPT/HCPCS: 11042 ==

== ENCOUNTER 2025-05-17 14:16 | Outpatient (CLI) | payer MEDICARE, BC | END 2025-05-17 14:17 | disposition home or self-care (01) | LOC: CSHWCC 14:16 | PROVIDERS: ATTEND Nurse Practitioner Family | DX: I87.331 Chronic venous hypertension (idiopathic) with ulcer and inflammation of right lower extremity (principal); L97.211 Non-pressure chronic ulcer of right calf limited to breakdown of skin; I50.22 Chronic systolic (congestive) heart failure | CPT/HCPCS: 29581 ==

== ENCOUNTER 2025-05-21 15:19 | Outpatient (CLI) | payer MEDICARE, BC | END 2025-05-21 15:20 | disposition home or self-care (01) | LOC: CSHWCC 15:19 | PROVIDERS: ATTEND Nurse Practitioner Family | DX: I87.331 Chronic venous hypertension (idiopathic) with ulcer and inflammation of right lower extremity (principal); L97.211 Non-pressure chronic ulcer of right calf limited to breakdown of skin; I50.22 Chronic systolic (congestive) heart failure | CPT/HCPCS: 11042 ==

== ENCOUNTER 2025-05-24 14:03 | Outpatient (CLI) | payer MEDICARE, BC | END 2025-05-24 14:04 | disposition home or self-care (01) | LOC: CSHWCC 14:03 | PROVIDERS: ATTEND Nurse Practitioner Family | DX: I87.331 Chronic venous hypertension (idiopathic) with ulcer and inflammation of right lower extremity (principal); L97.211 Non-pressure chronic ulcer of right calf limited to breakdown of skin; I50.22 Chronic systolic (congestive) heart failure | CPT/HCPCS: 29581 ==

== ENCOUNTER 2025-05-28 11:12 | Outpatient (CLI) | payer MEDICARE, BC | END 2025-05-28 11:13 | disposition home or self-care (01) | LOC: CSHWCC 11:12 | PROVIDERS: ATTEND Nurse Practitioner Family | DX: I87.331 Chronic venous hypertension (idiopathic) with ulcer and inflammation of right lower extremity (principal); L97.211 Non-pressure chronic ulcer of right calf limited to breakdown of skin; I50.22 Chronic systolic (congestive) heart failure | CPT/HCPCS: 11042 ==

== ENCOUNTER 2025-05-31 13:27 | Outpatient (CLI) | payer MEDICARE, BC | END 2025-05-31 13:28 | disposition home or self-care (01) | LOC: CSHWCC 13:27 | PROVIDERS: ATTEND Nurse Practitioner Family | DX: I87.331 Chronic venous hypertension (idiopathic) with ulcer and inflammation of right lower extremity (principal); L97.211 Non-pressure chronic ulcer of right calf limited to breakdown of skin; I50.22 Chronic systolic (congestive) heart failure | CPT/HCPCS: 29581 ==

== ENCOUNTER 2025-06-14 13:52 | Outpatient (CLI) | payer MEDICARE, BC | END 2025-06-14 13:53 | disposition home or self-care (01) | LOC: CSHWCC 13:52 | PROVIDERS: ATTEND Nurse Practitioner Family | DX: I87.331 Chronic venous hypertension (idiopathic) with ulcer and inflammation of right lower extremity (principal); L97.211 Non-pressure chronic ulcer of right calf limited to breakdown of skin; I50.22 Chronic systolic (congestive) heart failure | CPT/HCPCS: 29581 ==

== ENCOUNTER 2025-06-18 13:57 | Outpatient (CLI) | payer MEDICARE, BC | END 2025-06-18 13:58 | disposition home or self-care (01) | LOC: CSHWCC 13:57 | PROVIDERS: ATTEND Nurse Practitioner Family | DX: I87.331 Chronic venous hypertension (idiopathic) with ulcer and inflammation of right lower extremity (principal); L97.211 Non-pressure chronic ulcer of right calf limited to breakdown of skin; I50.22 Chronic systolic (congestive) heart failure | CPT/HCPCS: 11042 ==

== ENCOUNTER 2025-06-26 13:26 | Outpatient (CLI) | payer MEDICARE, BC | END 2025-06-26 13:27 | disposition home or self-care (01) | LOC: CSHWCC 13:26 | PROVIDERS: ATTEND Nurse Practitioner Family | DX: I87.331 Chronic venous hypertension (idiopathic) with ulcer and inflammation of right lower extremity (principal); L97.211 Non-pressure chronic ulcer of right calf limited to breakdown of skin; I50.22 Chronic systolic (congestive) heart failure | CPT/HCPCS: 11042; G0463; 99213 ==

== ENCOUNTER 2025-07-02 13:46 | Outpatient (CLI) | payer MEDICARE, BC | END 2025-07-02 13:47 | disposition home or self-care (01) | LOC: CSHWCC 13:46 | PROVIDERS: ATTEND Nurse Practitioner Family | DX: I87.331 Chronic venous hypertension (idiopathic) with ulcer and inflammation of right lower extremity (principal); L97.211 Non-pressure chronic ulcer of right calf limited to breakdown of skin; I50.22 Chronic systolic (congestive) heart failure | CPT/HCPCS: 11042; 99213; G0463 ==